=== PATIENT | male | born 1995 | race Hispanic/Latino ===

== ENCOUNTER 2018-09-02 16:19 | Emergency (ER) | payer SELFPAY ==
[~2018-09-02] VITALS: Ht 172.7 cm; Wt 100.0 kg
[2018-09-02] MEDS ORDERED: CAPTOPRIL25 MG PO (16:49)
[2018-09-02 17:34] VITALS: BP 167/99
== END 2018-09-02 17:34 | disposition home or self-care (01) | DRG 605 ==
LOC: ED 16:19
DX: S01.01XA Laceration without foreign body of scalp, initial encounter (principal); S51.812A Laceration without foreign body of left forearm, initial encounter; W25.XXXA Contact with sharp glass, initial encounter; Y93.H3 Activity, building and construction; Y92.89 Other specified places as the place of occurrence of the external cause; Y99.0 Civilian activity done for income or pay